=== PATIENT | male | born 1960 | race African-American/Black ===

== ENCOUNTER 2022-06-09 08:46 | Emergency (ER) | payer BC, OTHER ==
[~2022-06-09] VITALS: Ht 175.3 cm; Wt 89.0 kg
[~2022-06-09 08:46] MED LIST: INSU3INS6 SQ
[2022-06-09 08:57] VITALS: BP 171/92
[2022-06-09] MEDS ORDERED: CICL30GE5 TP (10:48)
== END 2022-06-09 11:08 | disposition home or self-care (01) ==
LOC: ER 08:46
DX: B35.1 Tinea unguium (principal); F12.10 Cannabis abuse, uncomplicated; E11.9 Type 2 diabetes mellitus without complications
CPT/HCPCS: 99283

== ENCOUNTER 2022-11-22 14:22 | Emergency (ER) | payer OTHER ==
[~2022-11-22] VITALS: Ht 182.9 cm; Wt 70.0 kg
[~2022-11-22 14:22] MED LIST changes: +CICL30GE5 TP
[2022-11-22] MEDS ORDERED: IBUPROFEN 600MG TABLET PO ONE (15:15)
[2022-11-22 15:25] VITALS: BP 177/90
[2022-11-22] MEDS ORDERED: IBUP-2029 MT (16:05)
== END 2022-11-22 17:00 | disposition home or self-care (01) ==
LOC: ER 14:22
DX: S40.021A Contusion of right upper arm, initial encounter (principal); E11.9 Type 2 diabetes mellitus without complications; W18.30XA Fall on same level, unspecified, initial encounter; Y93.89 Activity, other specified; Y92.89 Other specified places as the place of occurrence of the external cause; Y99.8 Other external cause status
CPT/HCPCS: 73030; 73080; 73090; 99284

== ENCOUNTER 2023-08-01 13:03 | Emergency (ER) | payer OTHER ==
[~2023-08-01] VITALS: Ht 182.9 cm; Wt 73.0 kg
[~2023-08-01 13:03] MED LIST changes: +IBUP-2029 MT
[2023-08-01 13:11] VITALS: TEMP 98.4; O2SAT 100
[2023-08-01 13:30] VITALS: BP 141/80; PULSE 89; RESP 16
[2023-08-01] MEDS ORDERED: IBUPROFEN 400MG TABLET PO ONE (13:30)
[2023-08-01] MEDS ORDERED: BACI28.32 TP (13:32)
== END 2023-08-01 17:25 | disposition home or self-care (01) ==
LOC: ER 13:39
DX: M79.674 Pain in right toe(s) (principal); F12.90 Cannabis use, unspecified, uncomplicated; E11.9 Type 2 diabetes mellitus without complications
CPT/HCPCS: 99282

== ENCOUNTER 2023-11-24 03:03 | Inpatient (IN) | payer OTHER ==
[~2023-11-24] VITALS: Ht 175.3 cm; Wt 63.5 kg
[2023-11-24] VITALS (54 sets, daily range): BP systolic 95–146; BP diastolic 56–82; PULSE 64–91; RESP 11–22; TEMP 97–98.8
[~2023-11-24 03:03] MED LIST changes: +BACI28.32 TP
[2023-11-24 04:04] LABS: BASOPHILS % 1.2 % (0.0-2.0); EOSINOPHILS % 2.9 % (0.0-5.0); HEMOGLOBIN. 12.6 g/dL (14.0-18.0); LYMPHOCYTES % 33.5 % (20.0-50.0); MEAN CORPUSCULAR HEMOGLOBIN 32.8 pg (28.0-32.0); MEAN CORPUSCULAR HGB CONC 34.1 g/dL (31.0-37.0); MEAN CORPUSCULAR VOLUME 96.1 fL (80.0-94.0); MEAN PLATELET VOLUME 7.6 fl (7.4-10.4); MONOCYTES % 8.3 % (2.0-8.0); NEUTROPHILS % 54.1 % (40.0-76.0); PLATELET 225 x1000/uL (130-400); RED BLOOD CELL COUNT 3.85 mill/uL (4.7-6.1); WHITE BLOOD COUNT 6.4 x1000/uL (4.5-11.0)
[2023-11-24 04:16] LABS: CHLORIDE 99 mEq/L (98-107); PARTIAL THROMBOPLASTIN TIME 25.1 sec (23.4-31.0); POTASSIUM 3.6 mEq/L (3.5-5.1); PROTHROMBIN TIME 10.8 sec (9.6-11.0); SODIUM 135 mEq/L (136-145)
[2023-11-24 04:17] LABS: CALCIUM 8.6 mg/dL (8.7-10.4); CARBON DIOXIDE 29 mEq/L (21-32)
[2023-11-24 04:22] LABS: CREATININE 1.5 mg/dL (0.6-1.3); GLUCOSE 385 mg/dL (70-105)
[2023-11-24 04:23] LABS: TROPONIN I HIGH SENSITIVITY 9 ng/L (3.0-53); UREA NITROGEN BLOOD 16 mg/dL (9-23)
[2023-11-24 04:24] LABS: ALANINE AMINOTRANSFERASE 52 IU/L (10-49); ALBUMIN 3.9 g/dL (3.2-4.8); ASPARTATE AMINOTRANSFERASE 46 IU/L (<34)
[2023-11-24 04:25] LABS: BILIRUBIN TOTAL 0.4 mg/dL (0.1-1.0); PROTEIN TOTAL 6.8 g/dL (6.0-8.3)
[2023-11-24 04:30] LABS: ETHANOL BLOOD < 10 mg/dL (<10)
[2023-11-24 04:39] LABS: LACTIC ACID 2.4 mmol/L (0.4-2.0)
[2023-11-24] MEDS: ONDANSETRON HCL 4MG/2ML INJ IV ONE (06:09)
[2023-11-24] MEDS: NICARDIPINE 40MG/200ML PREMIX 200 ML IV PRN (06:10)
[2023-11-24] MEDS: LEVETIRACETAM 500MG PREMIX 100 ML IV ONE ×2 (06:11→07:00)
[2023-11-24] MEDS: DEXAMETHASONE 10 MG/ML VIAL IV ONE (06:13)
[2023-11-24] MEDS ORDERED: DEXT 5%/LACTATED RINGERS 1,000 ML IV SCH (08:45)
[2023-11-24] MEDS ORDERED: ONDANSETRON HCL 4MG/2ML INJ IV PRN (09:15)
[2023-11-24] MEDS: NICARDIPINE 100 MG in SODIUM CHLORIDE 0.9% 60 ML IV PRN (09:47)
[2023-11-24] MEDS: LACTATED RINGERS 1,000 ML IV SCH (09:47)
[2023-11-24] MEDS: PANTOPRAZOLE SODIUM 40 MG/VIAL IV SCH (09:48)
[2023-11-24] MEDS: BLOOD SUGAR DIAGNOSTIC STRIP TEST SCH (11:30)
[2023-11-24] MEDS: DEXAMETHASONE 4MG/ML 1ML VIAL IV SCH (13:06)
[2023-11-24] MEDS: INSULIN LISPRO 100 UNITS/ML SUBCUT SCH (13:07)
[2023-11-24] MEDS: INSULIN GLARGINE 100 UNITS/ML SUBCUT SCH (14:17)
[2023-11-24 16:17] LABS: CLARITY URINE CLEAR (CLEAR); COLOR URINE YELLOW (YELLOW); GLUCOSE URINE 3+ (NEGATIVE); KETONES URINE TRACE (NEGATIVE); LEUKOCYTE ESTERASE URINE NEGATIVE (NEGATIVE); NITRITE URINE NEGATIVE (NEGATIVE); OCCULT BLOOD URINE NEGATIVE (NEGATIVE); PH URINE 5.5 (4.5-8.0); PROTEIN URINE 2+ (NEGATIVE); SPECIFIC GRAVITY URINE 1.019 (1.005-1.030); UROBILINOGEN URINE 0.2 E.U./dL (0.2-1.0)
[2023-11-24 16:31] LABS: *AMPHETAMINES SCREEN URINE NEGATIVE (NEGATIVE); *BARBITURATES SCREEN URINE NEGATIVE (NEGATIVE); *BENZODIAZEPINES SCREEN URINE NEGATIVE (NEGATIVE); *COCAINE SCREEN URINE NEGATIVE (NEGATIVE); METHADONE URINE SCREEN NEGATIVE (NEGATIVE)
[2023-11-24 16:32] LABS: CANNABINOID URINE SCREEN PRESUMPTIVE POSITIVE (NEGATIVE); ECSTASY MDMA SCREEN URINE NEGATIVE (NEGATIVE); OPIATES URINE SCREEN NEGATIVE (NEGATIVE); PHENCYCLIDINE URINE SCREEN NEGATIVE (NEGATIVE)
[2023-11-24 17:07] LABS: BACTERIA URINE TRACE; RBC URINE NONE SEEN /hpf (0-2); SQUAMOUS EPITHELIAL CELL URINE RARE /lpf (RARE/1+); WBC URINE 0-2 /hpf (0-2)
[2023-11-24] MEDS: LEVETIRACETAM 500MG PREMIX 100 ML IV SCH (21:04)
[2023-11-25] VITALS (59 sets, daily range): BP systolic 94–149; BP diastolic 46–88; PULSE 61–92; RESP 10–18; TEMP 97.9–98.8
[2023-11-25 05:25] LABS: BASOPHILS % 0.1 % (0.0-2.0); HEMATOCRIT. 39.9 % (42.0-52.0); HEMOGLOBIN. 13.3 g/dL (14.0-18.0); LYMPHOCYTES % 11.6 % (20.0-50.0); MEAN CORPUSCULAR HEMOGLOBIN 31.8 pg (28.0-32.0); MEAN CORPUSCULAR HGB CONC 33.3 g/dL (31.0-37.0); MEAN CORPUSCULAR VOLUME 95.4 fL (80.0-94.0); MEAN PLATELET VOLUME 8.2 fl (7.4-10.4); MONOCYTES % 2.2 % (2.0-8.0); NEUTROPHILS % 86.1 % (40.0-76.0); PLATELET 285 x1000/uL (130-400); RED BLOOD CELL COUNT 4.18 mill/uL (4.7-6.1); RED CELL DISTRIBUTION WIDTH 13.7 % (11.6-14.6); WHITE BLOOD COUNT 16.9 x1000/uL (4.5-11.0)
[2023-11-25 05:40] LABS: POTASSIUM 4.1 mEq/L (3.5-5.1)
[2023-11-25 05:41] LABS: CALCIUM 8.4 mg/dL (8.7-10.4)
[2023-11-25 05:46] LABS: CREATININE 1.6 mg/dL (0.6-1.3)
[2023-11-25] MEDS: GUAIFENESIN-DM 200MG-20MG/10ML UDC PO PRN (13:22)
[2023-11-25] MEDS: AMLODIPINE 10MG TABLET PO SCH (13:22)
[2023-11-26] VITALS: BP 136/77; PULSE 68; RESP 18; TEMP 97.9
[2023-11-26 04:00] VITALS: BP 154/95; PULSE 78; RESP 18; TEMP 96.8
[2023-11-26] MEDS: CLONIDINE 0.1MG TABLET PO PRN (06:28)
[2023-11-26 08:00] VITALS: BP 131/80; PULSE 60; RESP 18; TEMP 97.6
[2023-11-26] MEDS ORDERED: INSULIN GLARGINE 100 UNITS/ML SUBCUT NR (10:30)
[2023-11-26 12:00] VITALS: BP 140/75; PULSE 60; RESP 18; TEMP 97.8
[2023-11-26 16:00] VITALS: BP 143/83; PULSE 68; RESP 18; TEMP 97.7
[2023-11-26] MEDS: DOCUSATE SODIUM 250MG CAPSULE PO PRN (21:12)
[2023-11-26] MEDS: INSULIN GLARGINE 100 UNITS/ML SUBCUT SCH (21:13)
[2023-11-27] MEDS: DEXTROSE 50% WATER 50ML SYRINGE IV PRN (05:42)
[2023-11-27 08:00] VITALS: BP 161/86; PULSE 85; RESP 17; TEMP 97.5
[2023-11-27] MEDS: FAMOTIDINE 20MG TABLET PO SCH (09:11)
[2023-11-27 12:00] VITALS: BP 150/83; PULSE 65; RESP 17; TEMP 97.3
[2023-11-27] MEDS: LOSARTAN 50 MG TABLET PO SCH (14:06)
[2023-11-27 14:25] VITALS: BP 150/83; PULSE 65; TEMP 97.3; O2SAT 98
[2023-11-27] MEDS ORDERED: INSULIN GLARGINE 100 UNITS/ML SUBCUT SCH (22:00)
== END 2023-11-27 17:17 | DRG 85 ==
LOC: ER 03:03 → EDBEDREQTM 07:36 → EDBEDREQ 07:36 → MICUSO 08:29 → 7WST 11-25 18:54 → 7EST 11-25 20:43
PROVIDERS: ADMIT Internal Medicine; ATTEND Internal Medicine
DX: S06.350A Traumatic hemorrhage of left cerebrum without loss of consciousness, initial encounter (principal); G93.41 Metabolic encephalopathy; G81.91 Hemiplegia, unspecified affecting right dominant side; I10 Essential (primary) hypertension; E11.65 Type 2 diabetes mellitus with hyperglycemia; W06.XXXA Fall from bed, initial encounter; Y92.003 Bedroom of unspecified non-institutional (private) residence as the place of occurrence of the external cause; Y93.89 Activity, other specified; Y99.8 Other external cause status
CPT/HCPCS: 36415; 71045; 80048; 80053; 80305; 80320; 81003; 82962; 83036; 83605; 83880; 84484; 85025; 93005; 97112; 97162; 97166; 97530; 99291; C9113; J1100; J1815; J1953; J2405; J3490; J7050; J7120; G0480

== ENCOUNTER 2023-12-12 17:11 | Emergency (ER) | payer OTHER ==
[~2023-12-12] VITALS: Ht 182.9 cm; Wt 63.0 kg
[2023-12-12 17:14] VITALS: TEMP 97.7; O2SAT 100
[2023-12-12 21:45] VITALS: BP 125/82; PULSE 68; RESP 20
== END 2023-12-12 22:04 | disposition home or self-care (01) ==
LOC: ER 17:23
DX: R51.9 Headache, unspecified (principal); F12.90 Cannabis use, unspecified, uncomplicated; E11.9 Type 2 diabetes mellitus without complications; K21.9 Gastro-esophageal reflux disease without esophagitis; Z86.73 Personal history of transient ischemic attack (TIA), and cerebral infarction without residual deficits
CPT/HCPCS: 99283

== ENCOUNTER 2023-12-16 00:33 | Emergency (ER) | payer OTHER ==
[~2023-12-16] VITALS: Ht 170.2 cm; Wt 61.0 kg
[2023-12-16 00:48] VITALS: TEMP 98.7; O2SAT 99
[2023-12-16 03:50] VITALS: BP 138/98; PULSE 80; RESP 18
== END 2023-12-16 03:50 | disposition home or self-care (01) ==
LOC: ER 00:48
DX: R60.0 Localized edema (principal); I10 Essential (primary) hypertension; F12.90 Cannabis use, unspecified, uncomplicated; Z86.73 Personal history of transient ischemic attack (TIA), and cerebral infarction without residual deficits
CPT/HCPCS: 82962; 93971; 99284

== ENCOUNTER 2023-12-21 14:14 | Emergency (ER) | payer OTHER ==
[~2023-12-21] VITALS: Ht 182.9 cm; Wt 68.2 kg
[2023-12-21 14:28] VITALS: O2SAT 100
[2023-12-21 15:15] VITALS: TEMP 97.9
[2023-12-21] MEDS: ACETAMINOPHEN 500MG TABLET PO ONE (15:15)
[2023-12-21] MEDS ORDERED: LIDO700A15 TP (17:08)
[2023-12-21] MEDS ORDERED: ACET-2708 MT (17:08)
[2023-12-21 18:36] VITALS: BP 149/79; PULSE 75; RESP 16
== END 2023-12-21 18:38 | disposition home or self-care (01) ==
LOC: ER 14:22
DX: R07.81 Pleurodynia (principal); E11.9 Type 2 diabetes mellitus without complications; Z86.73 Personal history of transient ischemic attack (TIA), and cerebral infarction without residual deficits; V49.40XA Driver injured in collision with unspecified motor vehicles in traffic accident, initial encounter; Y93.89 Activity, other specified; Y92.89 Other specified places as the place of occurrence of the external cause; Y99.8 Other external cause status
CPT/HCPCS: 71101; 99283

== ENCOUNTER 2024-05-02 11:54 | Emergency (ER) | payer OTHER ==
[~2024-05-02] VITALS: Ht 180.3 cm; Wt 70.0 kg
[~2024-05-02 11:54] MED LIST changes: +ACET-2708 MT; +LIDO700A15 TP
[2024-05-02 11:57] VITALS: O2SAT 100
[2024-05-02 12:48] LABS: BASOPHILS % 0.8 % (0.0-2.0); EOSINOPHILS % 2.7 % (0.0-5.0); HEMATOCRIT. 39.8 % (42.0-52.0); LYMPHOCYTES % 43.6 % (20.0-50.0); MEAN CORPUSCULAR HEMOGLOBIN 30.7 pg (28.0-32.0); MEAN CORPUSCULAR HGB CONC 32.6 g/dL (31.0-37.0); MEAN CORPUSCULAR VOLUME 94.2 fL (80.0-94.0); MEAN PLATELET VOLUME 7.8 fl (7.4-10.4); MONOCYTES % 8.8 % (2.0-8.0); NEUTROPHILS % 44.1 % (40.0-76.0); PLATELET 199 x1000/uL (130-400); RED BLOOD CELL COUNT 4.23 mill/uL (4.7-6.1); RED CELL DISTRIBUTION WIDTH 14.2 % (11.6-14.6); WHITE BLOOD COUNT 4.9 x1000/uL (4.5-11.0)
[2024-05-02 12:52] LABS: CHLORIDE 103 mEq/L (98-107); POTASSIUM 4.7 mEq/L (3.5-5.1); PROTHROMBIN TIME 10.9 sec (9.6-11.0); SODIUM 136 mEq/L (136-145)
[2024-05-02 12:54] LABS: CALCIUM 9.4 mg/dL (8.7-10.4); CARBON DIOXIDE 28 mEq/L (21-32)
[2024-05-02 12:59] LABS: CREATININE 1.7 mg/dL (0.6-1.3); GLUCOSE 292 mg/dL (70-105); UREA NITROGEN BLOOD 24 mg/dL (9-23)
[2024-05-02 13:04] LABS: TROPONIN I HIGH SENSITIVITY < 4 ng/L (3.0-53)
[2024-05-02 17:28] VITALS: BP 122/82; PULSE 66; RESP 18; TEMP 36.78072; O2SAT 100
== END 2024-05-02 17:30 | disposition home or self-care (01) ==
LOC: ER 11:54
DX: R20.2 Paresthesia of skin (principal); E11.9 Type 2 diabetes mellitus without complications; Z79.899 Other long term (current) drug therapy; Z86.73 Personal history of transient ischemic attack (TIA), and cerebral infarction without residual deficits
CPT/HCPCS: 36415; 80048; 84484; 85025; 93005; 99284